=== PATIENT | male | born 1945 | race Caucasian/White ===

== ENCOUNTER → 2017-11-27 11:24 | Outpatient (CLI) | payer MEDICARE, OTHER, SELFPAY ==
[2017-11-27 13:12] LABS: Amphetamine Urine VISTA NEGATIVE (<1000 ng/mL); Barbiturate Urine VISTA NEGATIVE (< 200 ng/mL); Benzodiazepine Urine VISTA POSITIVE (< 200 ng/mL); Cocaine Urine VISTA NEGATIVE (< 300 ng/mL); Ecstacy Urine VISTA POSITIVE (< 500 ng/mL); Methadone Urine VISTA NEGATIVE (< 300 ng/mL); PCP Urine VISTA NEGATIVE (< 25 ng/mL); THC Urine VISTA NEGATIVE (< 50 ng/mL); Vista UDS pH Range 5
== END ==
PROVIDERS: Family Provider Family Medicine; PCP Family Medicine; Visit Provider Anesthesiology Pain Medicine
DX: F11.20 Opioid dependence, uncomplicated (principal)
CPT/HCPCS: 80307

== ENCOUNTER → 2018-07-21 11:24 | Outpatient (CLI) | payer MEDICARE, OTHER, SELFPAY ==
[2018-07-21 12:36] LABS: Amphetamine Urine VISTA NEGATIVE (<1000 ng/mL); Barbiturate Urine VISTA NEGATIVE (< 200 ng/mL); Benzodiazepine Urine VISTA POSITIVE (< 200 ng/mL); Cocaine Urine VISTA NEGATIVE (< 300 ng/mL); Ecstacy Urine VISTA POSITIVE (< 500 ng/mL); Methadone Urine VISTA NEGATIVE (< 300 ng/mL); PCP Urine VISTA NEGATIVE (< 25 ng/mL); THC Urine VISTA NEGATIVE (< 50 ng/mL); Vista UDS pH Range 5
== END ==
PROVIDERS: Family Provider Family Medicine; PCP Family Medicine; Referring Provider Anesthesiology Pain Medicine; Visit Provider Anesthesiology Pain Medicine
DX: F11.20 Opioid dependence, uncomplicated (principal)
CPT/HCPCS: 80307

== ENCOUNTER → 2018-11-04 | Outpatient (CLI) | payer MEDICARE, OTHER, SELFPAY ==
--- NOTE | 2018-11-04 12:10 | RAD_ITS ---
HISTORY: lower back pain, nki. had herniated disk repaired 35 years ago COMPARISON: None FINDINGS: # of images incl. paperwork: 3 XR Spine Lumbar 2 or 3 Views: Lumbar vertebral bodies are normal in height. Lumbar disc spaces are well maintained. No acute lumbar spine fracture or subluxation. Insert There is degenerative disc disease at almost every level. This is manifested by loss of disc height, endplate sclerosis, and enthesophytes. Vertebral body height within the lower lumbar spine demonstrates some chronic loss of height with minimal wedging. Facet arthropathy is also present within the lower lumbar spine, greatest at the L3-L4, L4-L5, and L5-S1 levels. 3 mm calcification superimposed over the left renal shadow may represent a nonobstructing stone. 2 mm calcification superimposed over the right renal shadow may represent a kidney stone. Calcific plaque within the aorta. RAD/Lumbar Spine 2 or 3 Views IMPRESSION: No acute lumbar spine fracture or subluxation. Multilevel degenerative disc disease within the lower thoracic and lumbar spine. 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 at 0126 Reported and signed by: Kali Bello MD Electronically Signed: Kali Bello MD at 1:25 EDT Tel , Service support ,
== END | disposition home or self-care (01) ==
LOC: RAD 11:56
PROVIDERS: Family Provider Family Medicine; PCP Family Medicine; Referring Provider Anesthesiology Pain Medicine; Visit Provider Anesthesiology Pain Medicine
DX: M54.9 Dorsalgia, unspecified (principal)
CPT/HCPCS: 72100

== ENCOUNTER 2018-11-24 09:30 | Outpatient (RCR) | payer MEDICARE, OTHER, SELFPAY ==
--- NOTE | 2018-11-10 08:16 | HP.PTEVAL ---
Patient's Visit Information Dionna ZAPATA is a 73 year old M referred to Physical Therapy by Hubert Waggoner MD with a diagnosis of Back and leg pain. Date of Evaluation: 11/10/18 Physical Therapist: Ronnie López DPT - Visit Plan Frequency: 2x /Week Duration: 4 Weeks Plan: Start with neutral spine core strengthening, light distraction, modalities as needed. - Subjective Findings: Pt. is here today for his initial evaluation with diagnosis of back and leg pain. Pt. reports he has been having anterior hip pain for years, was to the point of getting TKA, but physician wanted him to get his back looked at. Pt. reports having posterior leg pain as well. Pt. has not had an MRI of lumbar spine, but did have an xray showing degenerative changes throughout. Pt. reports having increased back pain with lying down, sitting, usually better with walking. Pt. has not tried any stretching or exercises at this point. Physician told patient he needs to trial PT prior to any other progression of injections or imaging. He denies muscle weakness or N/T. Pt. is hopeful to reduce symptoms in order to get back to all recreational activities without issues. - Pain Lumbar spine Pain Intensity (Out of 10): 2 Pain Intensity Range: 0, 3 R anterior hip Pain Intensity (Out of 10): 4 Pain Intensity Range: 1, 7 R posterior leg Pain Intensity (Out of 10): 3 Pain Intensity Range: 1, 6 - Objective POSTURE: Pt. has slight flexed posture. Pt. has slight wt. shift to L side in stance. PALPATION: Pt. has increased tenderness at anterior hip. Mild throughout posterior leg, no pain at piriformis muscle belly. Mild throughout lumbar spine. NEURO: Normal throughout. ROM: R hip- flexion 90deg increase nW, ER-15 deg increase NW, IR 2 deg increase NW, ext 5 deg increase NW. lumbar spine: flexion nil loss NE, ext mod loss NE, SB min loss bilat increase NE, rotation min loss NE. MMT: BLEs- 5/5 throughout; except R hip- flexion 4/5, abd 4-/5, ext 4-/5. GAIT: Pt. ambulates with antalgic pattern during R stance phase. Pt. ahs increased pain during R stance phase. decreased R hip ext and decrased L step length. STAIRS: step to pattern loading LLE only. - Special Tests L/S Slump test left side: Negative L/S Slump test right side: Negative L/S Left Straight Leg Raise: Negative L/S Right Straight Leg Raise: Negative Lumbar Standing: Flexion - Mechanical Response: No effect Lumbar Standing: Flexion - Symptoms During Testing: No effect Lumbar Standing: Flexion - Symptoms After Testing: No effect Lumbar Standing: Extension - Mechanical Response: No effect Lumbar Standing: Extension - Symptoms During Testing: No effect Lumbar Standing: Extension - Symptoms After Testing: No effect Lumbar Standing: Right Side Glides - Mechanical Response: No effect Lumbar Standing: Right Side [place] - Symptoms During Testing: Increases Lumbar Standing: Right Side [place] - Symptoms After Testing: No worse Lumbar Standing: Left Side [place] - Mechanical Response: No effect Lumbar Standing: Left Side [place] - Symptoms During Testing: Increases Lumbar Standing: Left Side [place] - Symptoms After Testing: No worse Lumbar Lying: Flexion - Mechanical Response: No effect Lumbar Lying: Flexion - Symptoms During Testing: Decreases Lumbar Lying: Flexion - Symptoms After Testing: No better R Hip Scour: Positive R Hip FADDIR - Labrum: Positive R Hip Impingement Provocation - Labrum: Positive - Goals Goal 1:: Pt. to be I with HEP. Goal Time Frame: 4-6 Weeks Goal 2:: Pt. to ahve increased core and hip strength by 1/2 grade of all effected musculature. Goal Time Frame: 4-6 Weeks Goal 3:: Pt. ambulate without increase in symptoms. Goal Time Frame: 4-6 Weeks Goal 4:: Pt. to sleep throughout the night without increase in symptoms. Goal Time Frame: 4-6 Weeks Goal 5:: Pt. to sit without increase in symptoms. Goal Time Frame: 4-6 Weeks Goal 6:: Pt. to be educated in prophalaxis techniques. Goal Time Frame: 4-6 Weeks - Rehabilitation Potential Physical Therapy Diagnosis: Pt. has signs and symptoms consistent with back and leg pain. Pt. appears to have degenerative changes of R hips, but has some radiating low back pain as well. I was unable to produce his radiating pain in his leg with back testing, unchanged with testing this date. Unable to totally rule out all symptoms coming from his hip. Rehabilitation Potential: Fair - Anticipated Interventions Patient/Client Instruction: Educate patient on: Condition, Plan of Care, Risk Factors, Benefits of Fitness Program For the Purpose of:: To foster healthy habits, To improve decision making, To facilitate caregiver knowledge, To improve self management, To prevent re-injury, To improve ability to perform tasks related to life management, To improve tolerance to ADL's Therapeutic Exercise to Include: Strength training, Body mechanics, Postural training, Flexibilty training, Gait and locomotor training, Passive ROM, Active ROM, Dynamic Lumbar Stabilization, Dante Exercises For the Purpose of:: To decrease pain, To decrease swelling/inflammation, To increase ROM, To improve nutrient delivery to tissue, To improve muscle performance and motor function, To improve gait and locomotor functions, To improve health of tissue, To decrease soft tissue restriction, To increase flexibility/ROM Manual Therapy Techniques to Include: Mobilization, Passive ROM, Functional dry needling For the Purpose of:: To decrease pain, To decrease swelling/inflammation, To increase ROM, To improve nutrient delivery to tissue, To increase oxygenation perfusion, To improve muscle performance and motor function IF ES: Yes Cryotherapy (ice pack, ice massage): Yes Thermo therapy (hot pack): Yes Ultrasound (thermal/non thermal): Yes For the Purpose of:: To decrease pain, To decrease swelling/inflammation, To increase ROM, To improve nutrient delivery to tissue, To improve health of tissue, To decrease soft tissue restriction, To increase flexibility/ROM Thank you for the opportunity to evaluate your patient. For Medicare and Medicare HMO plans, please review the plan of care and approve it. It will need to be FAXED BACK to us at [phone] for Medicare purposes. For Medicare only, by signing this I certify the plan of care. Please let me know if there are questions or concerns regarding this plan of care. Physician Signature: Date:
== END 2018-11-24 19:00 | disposition home or self-care (01) ==
LOC: PT 09:30
PROVIDERS: Family Provider Family Medicine; PCP Family Medicine; Referring Provider Anesthesiology Pain Medicine; Visit Provider Anesthesiology Pain Medicine
DX: M54.9 Dorsalgia, unspecified (principal); M79.604 Pain in right leg
CPT/HCPCS: 97110; 97140; 97161

== ENCOUNTER → 2018-12-17 | Outpatient (CLI) | payer MEDICARE, OTHER, SELFPAY ==
--- NOTE | 2018-12-17 13:45 | MRI_ITS ---
STUDY: MRI LUMBAR SPINE WITHOUT CONTRAST REASON FOR EXAM: Male, 73 years old. Pain radiating to right leg TECHNIQUE: Standardized fat and water weighted pulse sequences were obtained in the sagittal and axial planes. COMPARISON: Lumbar spine radiograph study November 04, 2018 FINDINGS: T12-L1: Normal endplates. Normal disc height, desiccation and normal morphology. Normal bilateral facet joints. Normal central canal and bilateral lateral recesses. Normal bilateral intervertebral neural foramina. Normal lumbar lordosis. There is no substantial scoliosis. Normal conus medullaris that terminates at T12-L1 L1-2: Normal endplates. Normal disc height, desiccation and moderate annular bulge.. Normal bilateral facet joints. Mild narrowing of the central canal. Normal bilateral lateral recesses. Mild bilateral intervertebral neural foraminal encroachment.. L2-3: Normal endplates. Normal disc height, desiccation and moderate annular bulge.. Normal bilateral facet joints. Mild narrowing of the central canal. Normal bilateral recesses. Mild bilateral neural foraminal encroachment L3-4: Normal endplates. Normal disc height, desiccation and mild annular bulge.. Mild facet arthropathy.. Normal central canal and bilateral lateral recesses. Moderate bilateral neuroforaminal stenosis L4-5: Normal endplates. Narrowed disc height, desiccation and mild annular bulge.. Bilateral facet arthropathy and thickening of ligamenta flava greater on the right.. Normal central canal mild bilateral recess encroachment mild left neuroforaminal stenosis and moderate stenosis on the right L5-S1: Normal endplates. Normal disc height, desiccation and minor annular bulge.. Facet arthropathy and thickening of ligamenta flava greater on the right.. Mild narrowing of the central canal. Normal bilateral lateral recesses. Moderate left neuroforaminal stenosis and more severe narrowing on the right. Normal visualized sacral ala. Right renal cyst is noted. Normal visualized paraspinous soft tissue structures. Findings are similar to that seen on radiographic study considering differences in imaging techniques MRI/Spine Lumbar (Routine) IMPRESSION: No evidence for acute fracture or other significant bony pathology. Moderate spondylosis and multilevel disc degeneration Multilevel spinal stenosis secondary to disc disease and bony hypertrophy most severe on the right at L4-5 and L5-S1.. Findings as above Electronically Signed: Mateusz Rivera MD at 18:44 EDT , Service support ,
== END | disposition home or self-care (01) ==
LOC: MRI 13:19
PROVIDERS: Family Provider Family Medicine; PCP Family Medicine; Referring Provider Anesthesiology Pain Medicine; Visit Provider Anesthesiology Pain Medicine
DX: M54.9 Dorsalgia, unspecified (principal); M79.604 Pain in right leg
CPT/HCPCS: 72148

== ENCOUNTER → 2019-08-11 11:13 | Outpatient (CLI) | payer MEDICARE, OTHER, SELFPAY ==
[2019-08-11 12:57] LABS: Amphetamine Urine VISTA NEGATIVE (<1000 ng/mL); Barbiturate Urine VISTA NEGATIVE (< 200 ng/mL); Benzodiazepine Urine VISTA NEGATIVE (< 200 ng/mL); Cocaine Urine VISTA NEGATIVE (< 300 ng/mL); Ecstacy Urine VISTA POSITIVE (< 500 ng/mL); Methadone Urine VISTA NEGATIVE (< 300 ng/mL); PCP Urine VISTA NEGATIVE (< 25 ng/mL); THC Urine VISTA NEGATIVE (< 50 ng/mL); Vista UDS pH Range 5
== END ==
PROVIDERS: PCP Family Medicine; Referring Provider Anesthesiology Pain Medicine; Visit Provider Anesthesiology Pain Medicine
DX: F11.20 Opioid dependence, uncomplicated (principal)
CPT/HCPCS: 80307

== ENCOUNTER → 2020-06-21 11:25 | Outpatient (CLI) | payer MEDICARE, OTHER, SELFPAY ==
[2020-06-21 12:55] LABS: Amphetamine Urine VISTA NEGATIVE (<1000 ng/mL); Barbiturate Urine VISTA NEGATIVE (< 200 ng/mL); Benzodiazepine Urine VISTA NEGATIVE (< 200 ng/mL); Cocaine Urine VISTA NEGATIVE (< 300 ng/mL); Ecstacy Urine VISTA POSITIVE (< 500 ng/mL); Methadone Urine VISTA NEGATIVE (< 300 ng/mL); PCP Urine VISTA NEGATIVE (< 25 ng/mL); THC Urine VISTA NEGATIVE (< 50 ng/mL); Vista UDS pH Range 6
== END ==
PROVIDERS: PCP Family Medicine; Referring Provider Anesthesiology Pain Medicine; Visit Provider Anesthesiology Pain Medicine
DX: F11.20 Opioid dependence, uncomplicated (principal)
CPT/HCPCS: 80307

== ENCOUNTER → 2023-11-12 | Outpatient (CLI) | payer MEDICARE, OTHER, SELFPAY ==
[2023-11-12 12:59] LABS: Amphetamine Urine VISTA NEGATIVE (<1000 ng/mL); Barbiturate Urine VISTA NEGATIVE (< 200 ng/mL); Benzodiazepine Urine VISTA NEGATIVE (< 200 ng/mL); Cocaine Urine VISTA NEGATIVE (< 300 ng/mL); Ecstacy Urine VISTA POSITIVE (< 500 ng/mL); Methadone Urine VISTA NEGATIVE (< 300 ng/mL); PCP Urine VISTA NEGATIVE (< 25 ng/mL); THC Urine VISTA NEGATIVE (< 50 ng/mL); Vista UDS pH Range 6
== END | disposition home or self-care (01) ==
LOC: LAB 11:09
PROVIDERS: Referring Provider Anesthesiology Pain Medicine; Visit Provider Anesthesiology Pain Medicine
DX: F11.20 Opioid dependence, uncomplicated (principal)
CPT/HCPCS: 80307

== ENCOUNTER → 2024-08-27 | Outpatient (CLI) | payer MEDICARE, OTHER, SELFPAY ==
[2024-08-27 11:00] LABS: Amphetamine Urine NEGATIVE (<1000 ng/mL); Barbiturate Urine NEGATIVE (< 200 ng/mL); Benzodiazepine Urine NEGATIVE (< 200 ng/mL); Buprenorphine Urine NEGATIVE (< 200 ng/mL); Cocaine Urine NEGATIVE (< 300 ng/mL); Fentanyl, Urine NEGATIVE; Methadone Urine NEGATIVE (< 300 ng/mL); Opiates Urine PRESUMPTIVE POSITIVE (< 300 ng/mL); Oxycodone, Urine NEGATIVE (< 100 ng/mL); PCP Urine NEGATIVE (< 25 ng/mL); THC Urine NEGATIVE (< 50 ng/mL)
== END | disposition home or self-care (01) ==
PROVIDERS: Referring Provider Anesthesiology Pain Medicine; Visit Provider Anesthesiology Pain Medicine
DX: F11.20 Opioid dependence, uncomplicated (principal)
CPT/HCPCS: 80307